=== PATIENT | female | born 1960 | race Caucasian/White ===

== ENCOUNTER 2018-07-07 19:49 | Emergency (ER) | payer OTHER ==
[~2018-07-07] VITALS: Ht 152.4 cm; Wt 71.2 kg
[2018-07-07 21:15] VITALS: Ht 152.4 cm; Wt 71.2 kg
[2018-07-08 00:22] VITALS: BP 119/74
== END 2018-07-08 00:22 | disposition home or self-care (01) ==
LOC: ED 19:49
DX: J40 Bronchitis, not specified as acute or chronic (principal); I10 Essential (primary) hypertension; E11.9 Type 2 diabetes mellitus without complications

== ENCOUNTER 2018-10-29 18:56 | Emergency (ER) | payer OTHER ==
[~2018-10-29] VITALS: Ht 152.4 cm; Wt 71.2 kg
[2018-10-29 19:01] VITALS: Ht 152.4 cm; Wt 71.2 kg
[2018-10-29 19:57] VITALS: BP 126/93
== END 2018-10-29 19:57 | disposition home or self-care (01) ==
LOC: ED 18:56
DX: S97.112A Crushing injury of left great toe, initial encounter (principal); I10 Essential (primary) hypertension; E11.9 Type 2 diabetes mellitus without complications; W20.8XXA Other cause of strike by thrown, projected or falling object, initial encounter; Y93.89 Activity, other specified; Y92.89 Other specified places as the place of occurrence of the external cause; Y99.8 Other external cause status
CPT/HCPCS: 82962

== ENCOUNTER 2019-08-08 21:09 | Emergency (ER) | payer OTHER ==
[~2019-08-08] VITALS: Ht 152.4 cm; Wt 72.1 kg
[2019-08-08 21:19] VITALS: Ht 152.4 cm; Wt 72.1 kg
[2019-08-08 22:27] VITALS: BP 137/85
== END 2019-08-08 22:27 | disposition home or self-care (01) ==
LOC: ED 21:09
DX: T23.271A Burn of second degree of right wrist, initial encounter (principal); I10 Essential (primary) hypertension; E11.9 Type 2 diabetes mellitus without complications; X16.XXXA Contact with hot heating appliances, radiators and pipes, initial encounter; Y93.89 Activity, other specified; Y92.89 Other specified places as the place of occurrence of the external cause; Y99.8 Other external cause status
CPT/HCPCS: 36415